=== PATIENT | female | born 1995 | race Caucasian/White ===

== ENCOUNTER 2016-10-13 20:12 | Emergency (ER) | payer BC, OTHER ==
[~2016-10-13] VITALS: Ht 165.1 cm; Wt 78.0 kg
[~2016-10-13 20:12] MED LIST: ZOFR4TAB3 SL
[2016-10-13 20:15] VITALS: BP 134/90; PULSE 118; RESP 16; TEMP 98.3; O2SAT 98
[2016-10-13] MEDS ORDERED: HYDR-3533 PO (22:04)
--- NOTE | 2016-10-13 22:12 | PD ---
HPI Chief Complaint: GI Complaint Time Seen by Provider: 22:06 Travel History International Travel<30 days: No Contact w/Intl Traveler<30days: No Traveled to known affect area: No History of Present Illness HPI 21-year-old male student of [employer] presents to the emergency Department with sudden onset high fever, chills, severe sore throat, ear pain, mild cough and nausea and vomiting which started yesterday and has progressed through the day today. Patient reports generalized body aches and pains, mild cough but no significant chest pain. No specific abdominal pain. She denies diarrhea. Patient states she is unable to keep anything down today. Patient denies urinary symptoms. Patient denies . Patient is allergic to Levaquin. PFSH Past Medical History Immunizations Current: Yes Past Surgical History Tonsillectomy: Yes Social History Alcohol Use: No Tobacco Use: No Substance Use: No Allergies-Medications (Allergen,Severity, Reaction): Coded Allergies: Levaquin (Verified Allergy, Unknown, 10/13/16) Reported Meds & Prescriptions Reported Meds & Active Scripts Active Zofran Odt (Ondansetron Odt) 4 Mg Tab 4 Mg SL Q8HR PRN Tamiflu (Oseltamivir Phosphate) 75 Mg Cap 75 Mg PO BID 5 Days Penicillin V Potassium 500 Mg Tab 500 Mg PO BID 10 Days Reported Lortab (Hydrocodone-Acetaminophen) 5-325 Mg Tab 1 Tab PO Q6H PRN Review of Systems Except as stated in HPI: all other systems reviewed are Neg General / Constitutional: Positive: Fever, Chills Eyes: No: Visual changes HENT: Positive: Headaches, Sore Throat, Rhinitis, Rhinorrhea, Congestion, Earache, No: Vertigo, Lightheadedness, Nosebleed, Neck Stiffness, Neck Pain, Gingival Bleeding, Dental Difficulties, Ear Discharge Cardiovascular: No: Chest Pain or Discomfort Respiratory: Positive: Cough, No: Shortness of Breath, Wheezing, Sneezing Gastrointestinal: Positive: Nausea, Vomiting, Loss of Appetite, No: Diarrhea, Abdominal Pain Genitourinary: No: Urgency, Frequency, Dysuria, Pelvic Pain, Flank Pain, Discharge Musculoskeletal: Positive: Myalgias, No: Pain Skin: No Rash Neurologic: No: Weakness Psychiatric: No: Depression Endocrine: No: Polydipsia Hematologic/Lymphatic: No: Easy Bruising Physical Exam Narrative GENERAL: Patient appears moderately ill but not septic. SKIN: Warm and dry. Patient appears flushed, but with normal turgor. HEAD: Atraumatic. Normocephalic. EYES: Pupils equal and round. No scleral icterus. No injection or drainage. ENT: No nasal bleeding or discharge. Mucous membranes pink and moist. Both TMs are dull bilaterally without significant erythema. Landmarks are noted. Pharynx is mildly generalized swollen with generalized erythema without exudate. Uvula is midline. Patient has a muffled voice. NECK: Trachea midline. No JVD. Neck is supple with mildly to moderately tender anterior lymph nodes which are moderately swollen. CARDIOVASCULAR: Tachycardic rate and normal rhythm. No murmurs gallops or rubs. RESPIRATORY: No accessory muscle use. Clear to auscultation. Breath sounds equal bilaterally. GASTROINTESTINAL: Abdomen soft, mild epigastric tenderness, nondistended. Hepatic and splenic margins not palpable. No CVA tenderness. MUSCULOSKELETAL: Extremities without clubbing, cyanosis, or edema. No obvious deformities. NEUROLOGICAL: Awake and alert. No obvious cranial nerve deficits. Motor grossly within normal limits. Five out of 5 muscle strength in the arms and legs. Normal speech. PSYCHIATRIC: Appropriate mood and affect; insight and judgment normal. Data Data Last Documented VS Vital Signs Date Time Temp Pulse Resp B/P Pulse Ox O2 Delivery O2 Flow Rate FiO2 10/14/16 01:19 89 16 113/56 98 Room Air 10/13/16 20:15 98.3 Orders Complete Blood Count With Diff (10/13/16 22:02) Comprehensive Metabolic Panel (10/13/16 22:02) Urinalysis - C+S If Indicated (10/13/16 22:02) Group A Rapid Strep Screen (10/13/16 22:02) Ecg Monitoring (10/13/16 22:02) Iv Access Insert/Monitor (10/13/16 22:02) Oximetry (10/13/16 22:02) Ceftriaxone Inj (Rocephin Inj) (10/13/16 22:15) Ketorolac Inj (Toradol Inj) (10/13/16 22:15) Acetaminophen (Tylenol) (10/13/16 22:15) Ondansetron Inj (Zofran Inj) (10/13/16 22:15) Influenzae A/B Antigen (10/13/16 22:02) Chest, Pa & Lat (10/13/16 ) Dexamethasone Inj (Decadron Inj) (10/13/16 22:15) Strep Culture (Group A) (10/13/16 22:10) Sodium Chlor 0.9% 1000 Ml Inj (Ns 1000 M (10/13/16 23:45) Monoscreen (10/13/16 23:42) Sodium Chlor 0.9% 1000 Ml Inj (Ns 1000 M (10/13/16 23:45) Ed Urine Pregnancytest Poc (10/13/16 23:43) Acetamin-Hydrocod 325-5 Mg ([place] 5-325 (10/14/16 00:15) Oseltamivir (Tamiflu) (10/14/16 01:45) Labs Laboratory Tests Test 10/13/16 10/13/16 10/14/16 22:20 22:33 00:00 White Blood Count 19.0 TH/MM3 Red Blood Count 5.19 MIL/MM3 Hemoglobin 13.7 GM/DL Hematocrit 41.7 % Mean Corpuscular Volume 80.4 FL Mean Corpuscular Hemoglobin 26.4 PG Mean Corpuscular Hemoglobin 32.9 % Concent Red Cell Distribution Width 15.0 % Platelet Count 220 TH/MM3 Mean Platelet Volume 7.8 FL Neutrophils (%) (Auto) 88.9 % Lymphocytes (%) (Auto) 4.5 % Monocytes (%) (Auto) 6.4 % Eosinophils (%) (Auto) 0.0 % Basophils (%) (Auto) 0.2 % Neutrophils # (Auto) 16.9 TH/MM3 Lymphocytes # (Auto) 0.9 TH/MM3 Monocytes # (Auto) 1.2 TH/MM3 Eosinophils # (Auto) 0.0 TH/MM3 Basophils # (Auto) 0.0 TH/MM3 CBC Comment DIFF FINAL Differential Comment Sodium Level 136 MEQ/L Potassium Level 3.5 MEQ/L Chloride Level 105 MEQ/L Carbon Dioxide Level 21.4 MEQ/L Anion Gap 10 MEQ/L Blood Urea Nitrogen 6 MG/DL Creatinine 0.72 MG/DL Estimat Glomerular Filtration 102 ML/MIN Rate Random Glucose 119 MG/DL Calcium Level 8.6 MG/DL Total Bilirubin 0.5 MG/DL Aspartate Amino Transf 10 U/L (AST/SGOT) Alanine Aminotransferase 17 U/L (ALT/SGPT) Alkaline Phosphatase 127 U/L Total Protein 7.3 GM/DL Albumin 3.6 GM/DL Urine Color YELLOW Urine Turbidity HAZY Urine pH 6.0 Urine Specific [place] 1.025 Urine Protein 30 mg/dL Urine Glucose (UA) NEG mg/dL Urine Ketones 10 mg/dL Urine Occult Blood NEG Urine Nitrite NEG Urine Bilirubin NEG Urine Urobilinogen LESS THAN 2.0 MG/DL Urine Leukocyte Esterase NEG Urine WBC 2 /hpf Urine Squamous Epithelial 7 /hpf Cells Urine Mucus MANY /lpf Microscopic Urinalysis Comment CULT NOT INDICATED Monoscreen NEG MDM Medical Decision Making Medical Screen Exam Complete: Yes Emergency Medical Condition: Yes Differential Diagnosis Febrile illness. Nausea and vomiting. Strep throat. Influenza. Pneumonia. Possible mononucleosis. Narrative Course Patient is medically stable at time of exam. Rapid strep and influenza were sent to the lab. IV access is obtained and labs are obtained including CBC, CMP, and urinalysis. Patient is given 30 mg Toradol IV, 1000 mg of acetaminophen by mouth, 10 mg Decadron IV, and 1000 mg Rocephin IV. Chest x-ray is negative for acute process per radiologist. CBC shows leukocytosis of 19.0 neutrophils are elevated at 88.9%, lymphs are low at 4.5. 2300hrs, care of patient turned over to Dr. Mccoy for final disposition. Scripts Ondansetron Odt (Zofran Odt)4 Mg Tab4 Mg SL Q8HR PRN (Nausea/Vomiting) #10 TAB Ref 0 Prov:Sixto Mccoy MD 10/14/16 Oseltamivir (Tamiflu)75 Mg Cap75 Mg PO BID 5 Days Ref 0 Prov:Sixto Mccoy MD 10/14/16 Penicillin V Potassium 500 Mg [id number] Mg PO BID 10 Days Ref 0 Prov:Sixto Mccoy MD 10/14/16 Condition: Stable Juanito Bah Oct 13, 2016 22:12
[2016-10-13] MEDS ORDERED: ONDANSETRON HCL 4 MG/2 ML VIAL IV PUSH ONE (22:15)
[2016-10-13] MEDS ORDERED: KETOROLAC TROMETHAMINE 30 MG/ML (IVP) VIAL IV PUSH ONE (22:15)
[2016-10-13] MEDS ORDERED: ACETAMINOPHEN 500 MG CPLT PO ONE (22:15)
[2016-10-13] MEDS ORDERED: cefTRIAXone INJ 1,000 MG in SODIUM CHLORIDE 0.9% INJ 25 ML IV ONE (22:15)
[2016-10-13] MEDS ORDERED: DEXAMETHASONE SOD PHOS 20 MG/5 ML VIAL IV PUSH ONE (22:15)
--- NOTE | 2016-10-13 22:38 | RADRPT ---
EXAM DATE/TIME: 10/13/2016 22:27 [place] COMPARISON: No previous studies available for comparison. INDICATIONS : Fever and sore throat since last night. MEDICAL HISTORY : None. SURGICAL HISTORY : None. ENCOUNTER: Initial ACUITY: 2 days PAIN SCORE: 0/10 LOCATION: Bilateral chest FINDINGS: PA and lateral views of the chest demonstrate the lungs to be symmetrically aerated without evidence of mass, infiltrate or effusion. The cardiomediastinal contours are unremarkable. Osseous structure s are intact. CONCLUSION: The lungs are clear. Marvin Dueñas MD on October 13, 2016 at 22:37 Board Certified Radiologist. This report was verified electronically.
[2016-10-13 22:48] LABS: AUTOMATED NEUTROPHIL # 16.9 TH/MM3 (1.8-7.7); BASOPHIL % 0.2 % (0.0-2.0); HEMATOCRIT 41.7 % (35.0-46.0); HEMO FLAGS DIFF FINAL; LYMPH % 4.5 % (9.0-44.0); LYMPHOCYTE # 0.9 TH/MM3 (1.0-4.8); MEAN CELL VOLUME 80.4 FL (80.0-100.0); MEAN CORPUSCULAR HEMOGLOBIN 26.4 PG (27.0-34.0); MEAN CORPUSCULAR HGB CONC 32.9 % (32.0-36.0); MONO % 6.4 % (0.0-8.0); NEUT % 88.9 % (16.0-70.0); PLATELET COUNT 220 TH/MM3 (150-450); RED BLOOD COUNT 5.19 MIL/MM3 (4.00-5.30)
[2016-10-13 23:06] LABS: BLOOD, URINE NEG (NEG); COMMENT (UR) CULT NOT INDICATED; CULTURE IF INDICATED CULT NOT INDICATED; GLUCOSE,URINE NEG (NEG); KETONE, URINE 10 mg/dL (NEG); MUCUS URINE MANY /lpf (OCC); NITRITE,URINE NEG (NEG); SQUAMOUS EPITHELIAL CELL URINE 7 /hpf (0-5); URINE COLOR YELLOW (YELLW/STRAW)
[2016-10-13 23:13] VITALS: RESP 16; O2SAT 99
[2016-10-13 23:15] LABS: ALT (GPT) 17 U/L (10-53); ANION GAP 10 MEQ/L (5-15); AST (GOT) 10 U/L (15-37); BICARBONATE 21.4 MEQ/L (21.0-32.0); BLOOD UREA NITROGEN 6 MG/DL (7-18); CHLORIDE 105 MEQ/L (98-107); GLOMERULAR FILTRATION RATE 102 ML/MIN (>89); POTASSIUM 3.5 MEQ/L (3.5-5.1); SODIUM (NA) 136 MEQ/L (136-145)
[2016-10-13 23:17] LABS: ALKALINE PHOSPHATASE 127 U/L (45-117); TOTAL BILIRUBIN ADULT 0.5 MG/DL (0.2-1.0)
--- NOTE | 2016-10-13 23:32 | PD ---
Data Data Last Documented VS Vital Signs Date Time Temp Pulse Resp B/P Pulse Ox O2 Delivery O2 Flow Rate FiO2 10/13/16 23:13 16 99 Room Air 10/13/16 20:15 98.3 118 134/90 Orders Complete Blood Count With Diff (10/13/16 22:02) Comprehensive Metabolic Panel (10/13/16 22:02) Urinalysis - C+S If Indicated (10/13/16 22:02) Group A Rapid Strep Screen (10/13/16 22:02) Ecg Monitoring (10/13/16 22:02) Iv Access Insert/Monitor (10/13/16 22:02) Oximetry (10/13/16 22:02) Ceftriaxone Inj (Rocephin Inj) (10/13/16 22:15) Ketorolac Inj (Toradol Inj) (10/13/16 22:15) Acetaminophen (Tylenol) (10/13/16 22:15) Ondansetron Inj (Zofran Inj) (10/13/16 22:15) Influenzae A/B Antigen (10/13/16 22:02) Chest, Pa & Lat (10/13/16 ) Dexamethasone Inj (Decadron Inj) (10/13/16 22:15) Strep Culture (Group A) (10/13/16 22:10) Sodium Chlor 0.9% 1000 Ml Inj (Ns 1000 M (10/13/16 23:45) Monoscreen (10/13/16 23:42) Sodium Chlor 0.9% 1000 Ml Inj (Ns 1000 M (10/13/16 23:45) Ed Urine Pregnancytest Poc (10/13/16 23:43) Acetamin-Hydrocod 325-5 Mg ([place] 5-325 (10/14/16 00:15) Labs Laboratory Tests Test 10/13/16 10/13/16 10/14/16 22:20 22:33 00:00 White Blood Count 19.0 TH/MM3 Red Blood Count 5.19 MIL/MM3 Hemoglobin 13.7 GM/DL Hematocrit 41.7 % Mean Corpuscular Volume 80.4 FL Mean Corpuscular Hemoglobin 26.4 PG Mean Corpuscular Hemoglobin 32.9 % Concent Red Cell Distribution Width 15.0 % Platelet Count 220 TH/MM3 Mean Platelet Volume 7.8 FL Neutrophils (%) (Auto) 88.9 % Lymphocytes (%) (Auto) 4.5 % Monocytes (%) (Auto) 6.4 % Eosinophils (%) (Auto) 0.0 % Basophils (%) (Auto) 0.2 % Neutrophils # (Auto) 16.9 TH/MM3 Lymphocytes # (Auto) 0.9 TH/MM3 Monocytes # (Auto) 1.2 TH/MM3 Eosinophils # (Auto) 0.0 TH/MM3 Basophils # (Auto) 0.0 TH/MM3 CBC Comment DIFF FINAL Differential Comment Sodium Level 136 MEQ/L Potassium Level 3.5 MEQ/L Chloride Level 105 MEQ/L Carbon Dioxide Level 21.4 MEQ/L Anion Gap 10 MEQ/L Blood Urea Nitrogen 6 MG/DL Creatinine 0.72 MG/DL Estimat Glomerular Filtration 102 ML/MIN Rate Random Glucose 119 MG/DL Calcium Level 8.6 MG/DL Total Bilirubin 0.5 MG/DL Aspartate Amino Transf 10 U/L (AST/SGOT) Alanine Aminotransferase 17 U/L (ALT/SGPT) Alkaline Phosphatase 127 U/L Total Protein 7.3 GM/DL Albumin 3.6 GM/DL Urine Color YELLOW Urine Turbidity HAZY Urine pH 6.0 Urine Specific [place] 1.025 Urine Protein 30 mg/dL Urine Glucose (UA) NEG mg/dL Urine Ketones 10 mg/dL Urine Occult Blood NEG Urine Nitrite NEG Urine Bilirubin NEG Urine Urobilinogen LESS THAN 2.0 MG/DL Urine Leukocyte Esterase NEG Urine WBC 2 /hpf Urine Squamous Epithelial 7 /hpf Cells Urine Mucus MANY /lpf Microscopic Urinalysis Comment CULT NOT INDICATED Monoscreen NEG MDM Medical Record Reviewed: Yes Supervised Visit with BRI: Yes Narrative Course I, Dr. Mccoy, have reviewed the advance practice practitioner's documentation and am in agreement unless otherwise indicated below, met with the patient face to face, made the diagnosis, and the medical decision making was done by me. *My assessment and Findings: The presentation is somewhat nonspecific with ENT complaints and gastrointestinal complaints. Workup is essentially unremarkable aside from leukocytosis, not an unexpected finding with frequent vomiting. CBC & BMP Diagram 10/13/16 22:20 LFTs normal Urinalysis normal Monoscreen negative Influenza negative Strep negative Although somewhat nonspecific we will provide the patient coverage for streptococcal pharyngitis and influenza. This will help avoid admission for an otherwise healthy 21-year-old female. Scripts as below. Return precautions were discussed. Patient has verbalized understanding and is quite agreeable. Diagnosis Primary Impression: Nausea & vomiting Qualified Code: R11.2 - Nausea and vomiting, intractability of vomiting not specified, unspecified vomiting type Additional Impressions: Sore throat Otalgia Qualified Code: H92.03 - Otalgia, bilateral Fever Qualified Code: R50.9 - Fever, unspecified fever cause Referrals: Primary Care Physician 2 days Additional Instruction: You have a choice when it comes to health care, and we are glad that you chose [facility]. Hopefully, we have met your expectations on today's visit. You are welcome to return to [facility] at any time, as we are committed to meeting the health care needs of our community. Med/Other Pt SpecificInfo: Prescription(s) given, No Change to Meds Scripts Ondansetron Odt (Zofran Odt)4 Mg Tab4 Mg SL Q8HR PRN (Nausea/Vomiting) #10 TAB Ref 0 Prov:Sixto Mccoy MD 10/14/16 Oseltamivir (Tamiflu)75 Mg Cap75 Mg PO BID 5 Days Ref 0 Prov:Sixto Mccoy MD 10/14/16 Penicillin V Potassium 500 Mg [id number] Mg PO BID 10 Days Ref 0 Prov:Sixto Mccoy MD 10/14/16 Disposition: 01 DISCHARGE HOME Condition: Stable Sixto Mccoy MD Oct 13, 2016 23:31
[2016-10-13] MEDS ORDERED: SODIUM CHLOR 0.9% 1000 ML INJ 1,000 ML IV ONE ×2 (23:45)
[2016-10-14] MEDS ORDERED: ACETAMINOPHEN/HYDROcodone 325 MG/5 MG TAB PO ONE (00:15)
[2016-10-14 01:19] VITALS: BP 113/56; PULSE 89; RESP 16; O2SAT 98
[2016-10-14] MEDS ORDERED: OSEL75 PO (01:21)
[2016-10-14] MEDS ORDERED: ZOFR4TAB3 SL (01:21)
[2016-10-14] MEDS ORDERED: PENI500T PO (01:21)
[2016-10-14] MEDS ORDERED: OSELTAMIVIR PHOSPHATE 75 MG CAP PO ONE (01:45)
== END 2016-10-14 02:53 | disposition home or self-care (01) ==
LOC: NEPC 20:12
DX: R50.9 Fever, unspecified (principal); D72.829 Elevated white blood cell count, unspecified; R11.2 Nausea with vomiting, unspecified; H92.03 Otalgia, bilateral
CPT/HCPCS: 71020; 80053; 81001; 85025; 86308; 87081; 87804; 87880; 96361; 96374; 96375; 99284; J0696; J1100; J1885; J2405; J7030